=== PATIENT | male | born 2000 | race Caucasian/White ===

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

== ENCOUNTER 2021-10-17 20:40 | Emergency (ER) | payer BC ==
[~2021-10-17] VITALS: Ht 190.5 cm; Wt 154.2 kg
[~2021-10-17 20:40] MED LIST changes: +OMEP20ER PO
[2021-10-17 21:04] LABS: BASOPHILS ABSOLUTE AUTO 0.07 K/mm3 (0.00-0.23); BASOPHILS PERCENT AUTO 0 % (0-2); EOSINOPHILS ABSOLUTE AUTO 0.24 K/mm3 (0.00-0.68); EOSINOPHILS PERCENT AUTO 1 % (0-6); Hematocrit 50.4 % (37.0-53.0); Hemoglobin 16.9 g/dL (13.5-17.5); IMMATURE GRAN ABSOLUTE AUTO 0.08 K/mm3 (0.00-0.10); IMMATURE GRAN PERCENT AUTO 0 % (0-1); LYMPHOCYTES ABSOLUTE AUTO 2.73 K/mm3 (0.84-5.20); LYMPHOCYTES PERCENT AUTO 14 % (21-46); MONOCYTES ABSOLUTE AUTO 1.03 K/mm3 (0.16-1.47); MONOCYTES PERCENT AUTO 5 % (4-13); Mean Corpuscular HGB 30.5 pg (26.0-34.0); Mean Corpuscular HGB Conc 33.5 g/dL (31.5-36.5); Mean Corpuscular Volume 91 fL (80-100); Mean Platelet Volume 9.9 fL (9.1-12.4); NEUTROPHILS PERCENT AUTO 78 % (41-73); Platelet Count 337 K/mm3 (150-400); RDW Coefficient Variation 12.5 % (11.7-14.2); RDW Standard Deviation 41.3 fL (35.1-46.3); Red Blood Cell Count 5.54 M/mm3 (4.30-5.90); White Blood Cell Count 18.95 K/mm3 (4.00-11.30)
[2021-10-17 21:21] LABS: Albumin, Blood 4.3 g/dL (3.4-5.0); Bilirubin, Total 0.5 mg/dL (0.1-1.0); Bun/Creatinine Ratio 13.9 (12.0-20.0); Calcium, Blood 9.1 mg/dL (8.5-10.1); Creatinine, Blood 0.72 mg/dL (0.60-1.20); Globulin, Blood 4.1 g/dL (2.2-4.0); Potassium, Blood 4.7 mmol/L (3.5-5.5); Total Protein, Blood 8.4 g/dL (6.4-8.2)
[2021-10-18] MEDS ORDERED: ONDA4ODT MM (01:29)
== END 2021-10-18 01:46 | disposition home or self-care (01) ==
LOC: ER 20:40
PROVIDERS: Emergency Medicine
DX: K52.9 Noninfective gastroenteritis and colitis, unspecified (principal); Z79.899 Other long term (current) drug therapy
CPT/HCPCS: 36415; 80053; 85025; A9270; J1885; J2405; J7030

== ENCOUNTER 2021-11-12 16:01 | Emergency (ER) | payer BC ==
[~2021-11-12] VITALS: Ht 190.5 cm; Wt 149.7 kg
[~2021-11-12 16:01] MED LIST changes: +ONDA4ODT MM
[2021-11-12 19:33] LABS: BASOPHILS ABSOLUTE AUTO 0.08 K/mm3 (0.00-0.23); BASOPHILS PERCENT AUTO 1 % (0-2); EOSINOPHILS ABSOLUTE AUTO 0.36 K/mm3 (0.00-0.68); EOSINOPHILS PERCENT AUTO 3 % (0-6); Hematocrit 46.1 % (37.0-53.0); Hemoglobin 15.5 g/dL (13.5-17.5); IMMATURE GRAN ABSOLUTE AUTO 0.03 K/mm3 (0.00-0.10); IMMATURE GRAN PERCENT AUTO 0 % (0-1); LYMPHOCYTES ABSOLUTE AUTO 3.61 K/mm3 (0.84-5.20); LYMPHOCYTES PERCENT AUTO 30 % (21-46); MONOCYTES PERCENT AUTO 5 % (4-13); Mean Corpuscular HGB 30.6 pg (26.0-34.0); Mean Corpuscular HGB Conc 33.6 g/dL (31.5-36.5); Mean Corpuscular Volume 91 fL (80-100); Mean Platelet Volume 10.2 fL (9.1-12.4); NEUTROPHILS ABSOLUTE AUTO 7.23 K/mm3 (1.96-9.15); NEUTROPHILS PERCENT AUTO 61 % (41-73); Platelet Count 285 K/mm3 (150-400); RDW Standard Deviation 42.7 fL (35.1-46.3); Red Blood Cell Count 5.07 M/mm3 (4.30-5.90); White Blood Cell Count 11.91 K/mm3 (4.00-11.30)
[2021-11-12 19:50] LABS: Albumin, Blood 4.3 g/dL (3.4-5.0); Albumin/Globulin Ratio 1.2 (0.8-1.8); Bilirubin, Total 0.9 mg/dL (0.1-1.0); Calcium, Blood 9.2 mg/dL (8.5-10.1); Creatinine, Blood 0.74 mg/dL (0.60-1.20); Globulin, Blood 3.7 g/dL (2.2-4.0); Potassium, Blood 3.9 mmol/L (3.5-5.5)
== END 2021-11-12 20:13 | disposition home or self-care (01) ==
LOC: ER 16:01
PROVIDERS: Student in an Organized Health Care Education/Training Program
DX: R06.00 Dyspnea, unspecified (principal); K21.9 Gastro-esophageal reflux disease without esophagitis
CPT/HCPCS: 36415; 71046; 80053; 85025

== ENCOUNTER 2024-01-26 11:18 | Emergency (ER) | payer BC ==
[~2024-01-26] VITALS: Ht 193 cm; Wt 157.4 kg
[2024-01-26 12:02] LABS: BASOPHILS ABSOLUTE AUTO 0.09 K/mm3 (0.00-0.23); BASOPHILS PERCENT AUTO 1 % (0-2); EOSINOPHILS ABSOLUTE AUTO 0.27 K/mm3 (0.00-0.68); EOSINOPHILS PERCENT AUTO 3 % (0-6); Hematocrit 47.9 % (37.0-53.0); Hemoglobin 16.4 g/dL (13.5-17.5); IMMATURE GRAN ABSOLUTE AUTO 0.03 K/mm3 (0.00-0.10); IMMATURE GRAN PERCENT AUTO 0 % (0-1); LYMPHOCYTES ABSOLUTE AUTO 2.57 K/mm3 (0.84-5.20); LYMPHOCYTES PERCENT AUTO 30 % (21-46); MONOCYTES PERCENT AUTO 7 % (4-13); Mean Corpuscular HGB 30.8 pg (26.0-34.0); Mean Corpuscular HGB Conc 34.2 g/dL (31.5-36.5); Mean Corpuscular Volume 90 fL (80-100); Mean Platelet Volume 9.7 fL (9.1-12.4); NEUTROPHILS ABSOLUTE AUTO 5.08 K/mm3 (1.96-9.15); NEUTROPHILS PERCENT AUTO 59 % (41-73); Platelet Count 283 K/mm3 (150-400); RDW Coefficient Variation 12.5 % (11.7-14.2); RDW Standard Deviation 40.9 fL (35.1-46.3); Red Blood Cell Count 5.32 M/mm3 (4.30-5.90); White Blood Cell Count 8.64 K/mm3 (4.00-11.30)
[2024-01-26 12:21] LABS: Albumin, Blood 4.2 g/dL (3.4-5.0); Albumin/Globulin Ratio 1.1 (0.8-1.8); Bilirubin, Total 0.5 mg/dL (0.1-1.0); Bun/Creatinine Ratio 17.1 (12.0-20.0); Calcium, Blood 9.1 mg/dL (8.5-10.1); Creatinine, Blood 0.88 mg/dL (0.60-1.20); Globulin, Blood 3.8 g/dL (2.2-4.0); Potassium, Blood 4.2 mmol/L (3.5-5.5)
[2024-01-26] MEDS ORDERED: CEPH500 PO (14:41)
[2024-01-26 14:46] VITALS: BP 143/80
== END 2024-01-26 14:50 | disposition home or self-care (01) ==
LOC: ER 11:18
PROVIDERS: Physician Assistant
DX: L03.221 Cellulitis of neck (principal)
CPT/HCPCS: 70491; 80053; 85025; 99283-25; Q9967

== ENCOUNTER 2024-03-13 14:30 | Emergency (ER) | payer BC ==
[~2024-03-13] VITALS: Ht 193 cm; Wt 154.2 kg
[~2024-03-13 14:30] MED LIST changes: +CEPH500 PO
[2024-03-13 14:37] VITALS: BP 188/78
[2024-03-13 15:59] LABS: BASOPHILS ABSOLUTE AUTO 0.11 K/mm3 (0.00-0.23); BASOPHILS PERCENT AUTO 1 % (0-2); EOSINOPHILS PERCENT AUTO 2 % (0-6); Hematocrit 46.3 % (37.0-53.0); IMMATURE GRAN ABSOLUTE AUTO 0.03 K/mm3 (0.00-0.10); IMMATURE GRAN PERCENT AUTO 0 % (0-1); LYMPHOCYTES ABSOLUTE AUTO 2.66 K/mm3 (0.84-5.20); LYMPHOCYTES PERCENT AUTO 23 % (21-46); MONOCYTES ABSOLUTE AUTO 0.85 K/mm3 (0.16-1.47); MONOCYTES PERCENT AUTO 7 % (4-13); Mean Corpuscular HGB 31.4 pg (26.0-34.0); Mean Corpuscular HGB Conc 34.6 g/dL (31.5-36.5); Mean Corpuscular Volume 91 fL (80-100); NEUTROPHILS ABSOLUTE AUTO 7.75 K/mm3 (1.96-9.15); NEUTROPHILS PERCENT AUTO 67 % (41-73); Platelet Count 320 K/mm3 (150-400); RDW Coefficient Variation 12.4 % (11.7-14.2); RDW Standard Deviation 40.5 fL (35.1-46.3)
[2024-03-13 16:12] LABS: Ethanol (Alcohol), Blood, Med <3 mg/dL; Salicylate <1.7 mg/dL (2.8-20.0)
[2024-03-13 16:14] LABS: Alanine Aminotransfer (ALT/SGP 56 U/L (12-78); Albumin/Globulin Ratio 1.1 (0.8-1.8); Alk Phos 46 U/L (50-136); Anion Gap 10 mmol/L (3-11); Aspartate Aminotrans (AST/SGOT 25 U/L (12-37); Bilirubin, Total 0.9 mg/dL (0.1-1.0); Blood Urea Nitrogen 10 mg/dL (8-24); Bun/Creatinine Ratio 11.3 (12.0-20.0); CO2, Blood 25 mmol/L (21-32); Chloride, Blood 108 mmol/L (98-108); Creatinine, Blood 0.89 mg/dL (0.60-1.20); Globulin, Blood 3.7 g/dL (2.2-4.0); Glomerular Filtration Rate 122 (60-); Glucose, Blood 85 mg/dL (70-99); Sodium, Blood 139 mmol/L (136-145); Total Protein, Blood 7.7 g/dL (6.4-8.2)
[2024-03-13 16:15] LABS: Acetaminophen, Random <2.0 ug/mL (10.0-30.0)
== END 2024-03-13 16:54 | disposition home or self-care (01) ==
LOC: ER 14:30
PROVIDERS: Physician Assistant
DX: F32.A Depression, unspecified (principal); F17.200 Nicotine dependence, unspecified, uncomplicated
CPT/HCPCS: 80053; 80320; 85025; 93005; 93010; 99285-25; G0480

== ENCOUNTER 2025-02-19 06:28 | Observation (INO) | payer BC ==
[~2025-02-19] VITALS: Ht 190.5 cm; Wt 154.2 kg
[2025-02-19 07:15] VITALS: BP 161/94
[2025-02-19] MEDS ORDERED: METHYLPHENIDATE27 MG PO (07:38)
[2025-02-19 08:08] LABS: BASOPHILS ABSOLUTE AUTO 0.10 K/mm3 (0.00-0.23); BASOPHILS PERCENT AUTO 1 % (0-2); EOSINOPHILS ABSOLUTE AUTO 0.16 K/mm3 (0.00-0.68); EOSINOPHILS PERCENT AUTO 2 % (0-6); Hematocrit 49.0 % (37.0-53.0); Hemoglobin 16.3 g/dL (13.5-17.5); IMMATURE GRAN ABSOLUTE AUTO 0.01 K/mm3 (0.00-0.10); IMMATURE GRAN PERCENT AUTO 0 % (0-1); LYMPHOCYTES ABSOLUTE AUTO 2.53 K/mm3 (0.84-5.20); LYMPHOCYTES PERCENT AUTO 29 % (21-46); MONOCYTES ABSOLUTE AUTO 0.70 K/mm3 (0.16-1.47); MONOCYTES PERCENT AUTO 8 % (4-13); Mean Corpuscular HGB Conc 33.3 g/dL (31.5-36.5); Mean Corpuscular Volume 92 fL (80-100); NEUTROPHILS ABSOLUTE AUTO 5.16 K/mm3 (1.96-9.15); NEUTROPHILS PERCENT AUTO 60 % (41-73); NRBC ABSOLUTE 0.00 K/mm3 (0.00-0.02); NRBC Auto 0.0 /100 WBC (0.0-0.2); Platelet Count 272 K/mm3 (150-400); RDW Coefficient Variation 12.6 % (11.7-14.2); RDW Standard Deviation 42.8 fL (35.1-46.3)
[2025-02-19 08:50] LABS: Alanine Aminotransfer (ALT/SGP 41 U/L (12-78); Albumin, Blood 4.1 g/dL (3.4-5.0); Albumin/Globulin Ratio 1.1 (0.8-1.8); Anion Gap 9 mmol/L (3-11); Aspartate Aminotrans (AST/SGOT 37 U/L (12-37); Bilirubin, Total 1.0 mg/dL (0.1-1.0); Blood Urea Nitrogen 14 mg/dL (8-24); CO2, Blood 22 mmol/L (21-32); Calcium, Blood 8.6 mg/dL (8.5-10.1); Chloride, Blood 111 mmol/L (98-108); Creatinine, Blood 0.77 mg/dL (0.60-1.20); Ethanol (Alcohol), Blood, Med <3 mg/dL; Globulin, Blood 3.6 g/dL (2.2-4.0); Glucose, Blood 99 mg/dL (70-99); Potassium, Blood 4.0 mmol/L (3.5-5.5); Sodium, Blood 138 mmol/L (136-145); Total Protein, Blood 7.7 g/dL (6.4-8.2)
[2025-02-19 09:27] LABS: U Amphetamine Screen Not Detected; U Barbiturate Screen Not Detected; U Benzodiazapine Screen Not Detected; U Buprenorphine Screen Not Detected; U Cannabinoids Screen DETECTED; U Cocaine Screen Not Detected; U Methadone Screen Not Detected; U Methamphetamine Screen Not Detected; U Opiates Screen Not Detected; U Oxycodone Screen Not Detected; U Phencyclidine Screen Not Detected
== END 2025-02-19 14:12 | disposition other institution (70) ==
LOC: ER 06:28 → EOR 06:29
PROVIDERS: ADMIT Emergency Medicine
DX: R45.851 Suicidal ideations (principal)
CPT/HCPCS: 80053; 80320; 85025; 99285; G0378

== ENCOUNTER 2025-02-19 13:25 | Inpatient (IN) | payer BC ==
[~2025-02-19] VITALS: Ht 190.5 cm; Wt 152.3 kg
[~2025-02-19 13:25] MED LIST changes: +METHYLPHENIDATE27 MG PO
[2025-02-19] MEDS ORDERED: Polyethylene Glycol 3350 17 gm PO PRN (14:10)
[2025-02-19] MEDS ORDERED: Aluminum Hydroxide 320MG/5ML 473 ML PO PRN (14:15)
[2025-02-19] MEDS ORDERED: LORazepam 2 MG/ML 1ML Injection IM PRN (14:15)
[2025-02-19 14:20] VITALS: BP 137/71
[2025-02-19] MEDS ORDERED: FLU VACC TS2025-26(6MOS UP)/PF 45 MCG/0.5 ML SYRINGE IM SCH (14:20)
[2025-02-19] MEDS ORDERED: Ondansetron 4 MG SoluTab MM PRN (14:20)
[2025-02-19] MEDS ORDERED: Haloperidol Lactate Inj. 5 MG/ML Injection IM PRN (14:20)
[2025-02-19] MEDS ORDERED: DiphenhydrAMINE HCl 50 MG/ML 1ML Vial IM PRN (14:25)
[2025-02-19 14:50] VITALS: BP 137/71
--- NOTE | 2025-02-19 15:56 | NUR ---
ADMISSION PT ADMITTED FROM THE ER FOR INCREASED ANXIETY AND DEPRESSION. PT REPORTED EXPERIENCING INCREASED ANXIETY SINCE HIS FATHER RETURNED HOME FROM A LONG TRIP. PT HAS SOME CHILDHOOD PTSD REGARDING HIS FATHER AND FEELS LIVING WITH HIM HAS MADE HIS ANXIETY/DEPRESSION WORSE RECENTLY. PT DENIES SI, HI, AVTH BUT FEELS THAT HE JUST REALLY NEEDS HELP MANAGING HIS SYMPTOMS. SKIN/HAIR CHECK COMPLETED WITH DANIEL MARLEY AND NO ABNORMALITIES NOTED. BELONGINGS LOCKED IN BIN ON UNIT AND PT ORIENTED TO UNIT. MEDICATION RECONCILATION COMPLETED. 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
--- NOTE | 2025-02-19 17:35 | NUR ---
SHIFT SUMMARY PT A/O X4; COOPERATIVE WITH CARE. HE WAS ADMITTED FROM THE [facility] ED TODAY FOR INCREASED ANXIETY AND DEPRESSION. HE CURRENTLY DENIES SI, HI, AVTH. HE WAS ORIENTED TO THE UNIT AND INTAKE COMPLETE. HE HAS BEEN IN HIS ROOM SINCE AND C/O ANXIETY RELATED TO BEING IN BHU. PT TREATED PER EMR. HE IS MONITORED Q15 PER UNIT PROTOCOL FOR SAFETY AND WELLNESS.
[2025-02-19 20:02] VITALS: BP 137/51
--- NOTE | 2025-02-19 23:27 | NUR ---
MID SHIFT SUMMARY FOR REPORT OFF: PT HAD UNEVENTFUL EVENING. SPENT MOST OF HIS TIME IN HIS ROOM READING AND LAYING IN BED. STATES HE IS LOOKING FORWARD TO TALKING TO MD AND CITY ENGINEER REGARDING COPING SKILLS AND PLAN FOR DEALING WITH HIS INCREASING ANXIETY. DENIES HALLUCINATIONS OR THOUGHTS OF SELF HARM.
--- NOTE | 2025-02-20 04:31 | NUR ---
Assumed care at 2300. Patient has slept well overnight. Did not wake to assess. Resting comfortably with even chest rise and fall. Will continue close monitoring every 15 minutes for comfort and safety per unit protocol.
[2025-02-20 08:26] LABS: CHOL/HDL RATIO 4.8; Cholesterol 160 mg/dL (50-200); HDL Cholesterol 33 mg/dL (>39); LDL/HDL RATIO 2.9; Low Density Lipoprotein Chol 95 mg/dL (0-110); Triglycerides 162 mg/dL (30-140); Very Low Density Lipoprot Chol 32 mg/dL (6-28)
[2025-02-20] MEDS ORDERED: Multivitamins 1 Tab PO SCH (09:00)
--- NOTE | 2025-02-20 13:35 | NUR ---
SHIFT ASSESSMENT: PT DENIED SI, HI, AVH, ANXIETY AND PHYSICAL PAIN. HE REPORTED HIS MOOD , "I'M IN A GREAT MOOD." PT'S AFFECT WAS EUTHYMIC. HE FEELS, LIKE I ALREADY MET MY GOAL...I SLEPT WELL AND FEEL GOOD. I WAS SLEEP DEPRIVED AND NEVER FELT LIKE I WANTED TO ." PT HAS ATTENDED GROUPS TODAY AND HAS BEEN PLEASANT AND COOPERATIVE.
--- NOTE | 2025-02-20 17:34 | NUR ---
PT HAS BEEN WALKING THE HALLS AND ALSO BEEN IN GROUPS TODAY. HE HAS BEEN PLEASANT AND COOPERATIVE WITH CARE. PT WANTS TO DISCHARGE TOMORROW. HE CONTINUES TO DENY SI, HI AND AVH.
[2025-02-20 19:24] VITALS: BP 149/83
--- NOTE | 2025-02-21 04:55 | NUR ---
SHIFT SUMMARY: PA/O X4. COOPERTIVE AND PLEASANT. DENIES SI, HI, AND AVH. STATES HE IS IN A GOOD MOOD. ABLE TO MAKE DECISIONS. GROOMING IS GOOD AND CLEAN. VOICE TONE CALM. DOES HAVE ANXIETY AT TIMES AND STATES HE IS DEPRESSED. HE SAYS THAT HE DOESN'T WANT TO . ENCOURAGED TO TALK WITH STAFF IF HE NEEDS TOO. PT WENT TO BED AFTER SNACK AND MEDICATIONS. HAS SLEPT SINCE. WILL CONTINUE TO MONITOR
--- NOTE | 2025-02-21 08:35 | NUR ---
IMPORTANT DISCHARGE INFORMATION PATIENT IS DISCHARGING TODAY AROUND 11AM. HIS VEHICLE IS IN THE [facility] PARKING LOT. PLEASE ENCOURAGE HIM TO ATTEND HIS NEW PCP APPOINTMENT ON 02/26/25 AT [facility]. HE HAS A HISTORY OF "NO SHOWS". ALL PARTIES VERBALIZE AN UNDERSTANDING. FOLLOW UP WITH NEW PCP AT [facility] DR. SNOW ON 02/26/25 AT 3:20PM. A MENTAL HEALTH REFERRAL WAS PLACED. [facility] FOR FOLLOW UP OPEN ACCESS PHARMACY: [facility] FAX RESOURCES: NEW PCP, [facility] AND [facility].
[2025-02-21 08:58] VITALS: BP 151/88
[2025-02-21] MEDS ORDERED: Seroquel Xr50 MG PO (09:26)
--- NOTE | 2025-02-21 10:05 | NUR ---
DISHARGE NOTE: PT DISCHARGED HOME. STATES UNDERSTANDING OF DISCHARGE INSTRUCTIONS AND DENIED QUESTIONS. PT DENIED SI, HI AND AVH. STATES THAT HE FELLS SAFE GOING HOME. BELONGINGS RETURNED BY LANA LOVLEL. PT OUT OF UNIT WITH DISCHARGE INSTRUCTIONS AND BELONGINGS IN HAND.
== END 2025-02-21 10:05 | disposition home or self-care (01) | DRG 882 ==
LOC: BHU 13:25
PROVIDERS: ADMIT Psychiatry & Neurology Psychiatry
DX: F43.25 Adjustment disorder with mixed disturbance of emotions and conduct (principal); R45.851 Suicidal ideations; F12.90 Cannabis use, unspecified, uncomplicated; F90.9 Attention-deficit hyperactivity disorder, unspecified type; Z23 Encounter for immunization; Z79.899 Other long term (current) drug therapy; Z79.1 Long term (current) use of non-steroidal anti-inflammatories (NSAID)
CPT/HCPCS: 80061; 83036; A9270